=== PATIENT | female | born 1975 | race Caucasian/White ===

== ENCOUNTER → 2016-05-22 | Outpatient (CLI) | payer BC ==
--- NOTE | 2016-05-23 09:23 | XR ---
Lumbosacral spine HISTORY: Chronic low back pain 5 views of lumbosacral spine There is no spondylolysis or spondylolisthesis. Lumbar vertebral bodies show preserved height and bon e mineralization. Disc spaces are maintained. IMPRESSION: No significant abnormalities evident.
== END | disposition home or self-care (01) ==
LOC: RADXRYALE 15:45
PROVIDERS: ATTEND Internal Medicine
DX: M54.9 Dorsalgia, unspecified (principal)
CPT/HCPCS: 72110

== ENCOUNTER → 2017-12-25 | Outpatient (CLI) | payer OTHER ==
--- NOTE | 2017-12-25 13:46 | XR ---
Left ankle HISTORY: Pain and swelling, trauma and pain 3 views of the left ankle There is soft tissue swelling especially lateral malleolus. Bone mineralization, joint spaces and ali gnment are maintained. IMPRESSION: Soft tissue swelling. Follow-up as indicated.
== END | disposition home or self-care (01) ==
LOC: RADXRYALE 11:16
PROVIDERS: ATTEND Internal Medicine
DX: M79.89 Other specified soft tissue disorders (principal)

== ENCOUNTER → 2018-07-02 | Outpatient (CLI) | payer OTHER ==
--- NOTE | 2018-07-02 14:41 | MM ---
Reason for exam: screening (asymptomatic). Baseline mammogram. History: Family history of breast cancer in 2 paternal aunts. Physical Findings: Nurse did not find any significant physical abnormalities on exam. MG 3D Screening Mammo W/Cad Bilateral CC and MLO view(s) were taken. The breast tissue is heterogeneously dense. This may lower the sensitivity of mammography. No significant finding. These results were verbally communicated with the patient and result sheet given to the patient on 07/02/18. ASSESSMENT: Benign, BI-RAD 2 RECOMMENDATION: Routine screening mammogram of both breasts in 1 year.
== END | disposition home or self-care (01) ==
LOC: RADMAMWWP 13:35
PROVIDERS: ATTEND Obstetrics & Gynecology
DX: Z12.31 Encounter for screening mammogram for malignant neoplasm of breast (principal)
CPT/HCPCS: 77063; 77067

== ENCOUNTER → 2018-07-08 | Outpatient (CLI) | payer OTHER | END | disposition home or self-care (01) | LOC: LABWHC1 15:37 | PROVIDERS: ATTEND Obstetrics & Gynecology | DX: N83.291 Other ovarian cyst, right side (principal) | CPT/HCPCS: 36415 ==

== ENCOUNTER → 2018-09-15 | Outpatient (CLI) | payer OTHER ==
[2018-09-15 10:34] LABS: African American GFR (CKD) >90 (>60 ml/min/1.73 sqM); Anion Gap 8 mmol/L; Blood Urea Nitrogen 12 mg/dL (7-17); Carbon Dioxide 27 mmol/L (22-30); Chloride 105 mmol/L (98-107); Glucose 101 mg/dL (74-99); Potassium 4.7 mmol/L (3.5-5.1); Sodium 140 mmol/L (137-145)
[2018-09-15 10:36] LABS: Basophils % (A) 1 %; Eosinophils # (A) 0.1 k/uL (0-0.7); Eosinophils % (A) 2 %; HCT 38.3 % (34.0-46.0); HGB 12.7 gm/dL (11.4-16.0); Lymphocytes # (A) 1.8 k/uL (1.0-4.8); Lymphocytes % (A) 29 %; MCH 29.8 pg (25.0-35.0); MCHC 33.2 g/dL (31.0-37.0); Mean Platelet Volume 7.5; Monocytes # (A) 0.3 k/uL (0-1.0); Monocytes % (A) 5 %; Neutrophils # (A) 3.8 k/uL (1.3-7.7); Neutrophils % (A) 62 %; Platelet Count 320 k/uL (150-450); RBC 4.25 m/uL (3.80-5.40); RDW 13.2 % (11.5-15.5); WBC 6.1 k/uL (3.8-10.6)
== END | disposition home or self-care (01) ==
LOC: LABPAT 09:24
PROVIDERS: ATTEND Obstetrics & Gynecology
DX: Z01.812 Encounter for preprocedural laboratory examination (principal); N83.291 Other ovarian cyst, right side
CPT/HCPCS: 80051; 82565; 82947; 84520; 85025; 87086

== ENCOUNTER 2018-09-23 05:56 | Observation (INO) | payer OTHER ==
[~2018-09-23 05:56] MED LIST: DEXAMETHASONE SOD PHOSPHATE 10 MG/ML 1 ML VIAL IV ONE; LACTATED RINGERS 1,000 ML IV SCH; LIDOCAINE 1% 20 ML VIAL (10MG/ML) FOR IV START INTRADERMA PRN; MIDAZOLAM 2 MG/2 ML VIAL IV PRN; ONDANSETRON 4 MG/2 ML VIAL IVP ONE; SCOPOLAMINE 1.5MG/72HR PATCH TRANSDERM ONE; ceFAZolin IN SWFI 2 GM/20 ML SYRINGE IVP ONE
[2018-09-23] MEDS ORDERED: MIDAZOLAM 2 MG/2 ML VIAL ONE (07:27)
[2018-09-23] MEDS ORDERED: NEOSTIGMINE 1 MG/ML 10 ML VIAL ONE (07:27)
[2018-09-23] MEDS ORDERED: LIDOCAINE 1% INJ 10MG/ML (20 ML MDV) ONE (07:27)
[2018-09-23] MEDS ORDERED: ROCURONIUM BROMIDE 10 MG/ML 10 ML VIAL IV ONE (07:27)
[2018-09-23] MEDS ORDERED: SUCCINYLCHOLINE CHLORIDE 100 MG/5 ML SYR IV ONE (07:27)
[2018-09-23] MEDS ORDERED: fentaNYL (PF) 50 MCG/ML 2 ML AMP ONE (07:27)
[2018-09-23] MEDS ORDERED: PROPOFOL 10 MG/ML 20 ML VIAL IV ONE (07:27)
[2018-09-23] MEDS ORDERED: HYDROmorphone (PF) 1 MG/ML ONE (07:27)
[2018-09-23] MEDS ORDERED: KETOROLAC 30 MG/ML 1 ML VIAL ONE (07:27)
[2018-09-23] MEDS ORDERED: GLYCOPYRROLATE 0.2 MG/ML 2 ML VIAL ONE (07:27)
[2018-09-23] MEDS ORDERED: BUPIVACAINE (PF) 0.5% 30 ML VIAL SQ ONE ×3 (08:14→09:27)
[2018-09-23] MEDS ORDERED: ONDANSETRON 4 MG/2 ML VIAL IVP PRN (09:19)
[2018-09-23] MEDS ORDERED: METOCLOPRAMIDE 5 MG/ML 2 ML VIAL IVP PRN (09:19)
[2018-09-23] MEDS ORDERED: diphenhydrAMINE 50 MG/ML 1 ML VIAL IVP PRN (09:19)
[2018-09-23] MEDS ORDERED: SIMETHICONE 80 MG CHEWABLE PO PRN (09:19)
[2018-09-23] MEDS ORDERED: Acetaminophen-Codeine 300-30mg TAB PO PRN ×2 (09:19)
--- NOTE | 2018-09-23 09:37 | P.OP ---
Date of Procedure: 09/23/18 Preoperative Diagnosis: #1. Menometrorrhagia #2. Fibroid uterus #3. Complex right adnexal mass Postoperative Diagnosis: Same plus #4. abdominal adhesive disease Procedure(s) Performed: #1. Lysis of abdominal adhesions #2. Da Andreea robotically assisted laparoscopic hysterectomy with right salpingo-oophorectomy and partial left salpingectomy #3. Diagnostic cystoscopy Anesthesia: BRITTNEY Surgeon: Juan Byers [employer] Assistant Teacher #1: Vanita Hu Estimated Blood Loss (ml): 50 IV fluids (ml): 700 Urine output (ml): 425 Pathology: other (Uterus, right tube and ovary, part of left tube) Condition: stable Disposition: PACU Operative Findings: Intraoperatively, there was noted to be some adhesions from the omentum to the anterior abdominal wall at the site of apparent periumbilical or ventral abdominal wall hernia repair. These were lysed sharply intraoperatively with laparoscopic rafi. The pelvis was noted to have a moderate amount of inflammation as a general rule with the tubes and ovaries being densely invested the each other. The left ovary did appear to be normal but the tube was too densely adherent terbutaline remove the fimbriated portion. As result only a portion of the left fallopian tube was removed. The right tube and ovary were removed en bloc with the uterine specimen. The remainder of the abdomen appeared entirely normal. Description of Procedure: Patient was prepped and draped in usual fashion after general endotracheal anesthesia was administered by the anesthesiologist. A weighted speculum was placed and the anterior lip the cervix grasped with a single-tooth tenaculum. The cervix was dilated to admit a V care with a large cup was placed and seated over the cervix properly. The weighted speculum was removed and the bladder catheterized with a Al catheter. Attention was turned to the abdomen where a site was selected approximately 3-4 cm above the umbilicus as there was a scar circling the right side of the umbilicus from a possible previous hernia repair. An 8 mm incision was made in the transverse plane allowing insertion of a 5 mm optical trocar under direct visualization without difficulty. A pneumoperitoneum was infused and the patient placed in steep Trendelenburg position. A site was selected approximately 12 cm lateral to the port and 4 cm inferior on the right side where another 8 mm incision was made allowing insertion of an 8 mm da Andreea trocar under direct vision station without difficulty. Some difficulty was noted in visualizing all the mirroring left lower quadrant incision as there was what appeared to be fairly dense omental adhesions just in front of the optical trocar from the previous surgery. The scope was switched to the right lower quadrant port and visualization was obtained for placement. Prior to placement of the conservation assistant trocar, a laparoscopic EndoShears was placed through the optical port and the adhesions were removed at the abdominal wall sharply without difficulty with no ongoing bleeding. The assistance port was then placed approximately 5-6 cm above the optical port and between the left lower quadrant port and optical port from laterality perspective. The optical port was then removed and replaced with a 8mm da Andreea optical port. The robot was then docked to the patient without difficulty. The left arm was loaded with a [place] bipolar cautery forceps while the right arm was loaded with the monopolar cautery scissors. I then presented to the console. The decision was made to leave the left ovary in place as previously planned but the decision was also made to leave the fimbriated portion of the tube as it was densely adherent ovary itself. As result the fallopian tube was divided at the ovary in the incision carried out through the utero-ovarian ligaments using bipolar cautery followed by monopolar cutting. The plane was taken down and through the round ligaments on the left side in a similar fashion. The bladder peritoneum was then elevated and the developed to the midline. Attention was then returned to the right side where the utero-ovarian ligament was identified and cauterized with the [place] followed by incising it with the monopolar cautery scissors. Again the entire tube and ovary were removed along their base down and through the round ligament in similar fashion. The bladder peritoneum was then developed across the midline and joined to the previous incision. The bladder peritoneum was elevated and the collected sharply. A Ray-Andi was passed into the abdomen allowing for further blunt dissection the bladder without difficulty. Once it was determined that the bladder was reflected distally, the bilateral uterine vasculature pedicles were skeletonized and cauterized, then cut. The vaginal cuff was clearly identified anteriorly with the bladder distal. The vagina was sealed and the the anterior cuff of the vagina opened sharply with the monopolar scissors. The cup was then followed around laterally to the left and then posteriorly using sharp cautery. The incision was carried around and up through the right side and joined to the original anterior incision the specimen from the patient. It was ultimately removed into the vagina without difficulty. The Maryland was left in place while the scissors were replaced with a laparoscopic suturing device. A stitch of 0 Stratafix suture was passed and the abdomen and the vaginal cuff closed from angle to angle without difficulty. The stitch was removed without difficulty in the closed vaginal cuff suction irrigated. Was determined there was no ongoing bleeding and no further pathology. The left ovary with a portion of fallopian tube was reexamined and found to be hemostatic and without pathology. I then returned to the patient and remove the Al catheter allowing placement of a diagnostic cystoscope. The dome of the bladder appeared undamaged both from a cystoscopic and laparoscopic perspective. Ureteral hemlocks were easily identified within the bladder and both noted to be peristalsing normally. All instrumentation was then removed and the Al catheter replaced. Once the robot was undocked and ports removed, the incisions were closed with interrupted subcuticular stitches of 4-0 Vicryl followed by half-inch Steri-Strips placed with Mastisol. The incisions were infused with a total of 10 mL of half percent Marcaine without epinephrine equally infused between the 4 incisions. Estimated blood loss for the case was approximately 50 mL. There were no complications. All sponge, instrument, and needle counts were correct area the patient tolerated the procedure well and proceeded to the recovery room in stable condition.
[2018-09-23] MEDS: HYDROmorphone 0.5 MG/0.5 ML SYRINGE IVP PRN ×4 (09:55→10:06)
[2018-09-23] MEDS: MEPERIDINE 50 MG/ML SYRINGE IVP ONE ×2 (10:14→10:19)
[2018-09-23 12:35] VITALS: BMI 37.3
[2018-09-23] MEDS: LACTATED RINGERS 1,000 ML IV SCH ×2 (12:37→15:40)
[2018-09-23] MEDS: KETOROLAC 30 MG/ML 1 ML VIAL IVP PRN ×2 (15:38→21:51)
[2018-09-23] MEDS: SENNOSIDES-DOCUSATE SODIUM 1 EACH TAB PO SCH (20:26)
[2018-09-24] MEDS: LACTATED RINGERS 1,000 ML IV SCH (08:07)
[2018-09-24] MEDS: KETOROLAC 30 MG/ML 1 ML VIAL IVP PRN (08:48)
[2018-09-24] MEDS: SENNOSIDES-DOCUSATE SODIUM 1 EACH TAB PO SCH (08:49)
--- NOTE | 2018-09-24 08:51 | P.DS ---
Providers Date of admission: 09/23/18 21:51 Expected date of discharge: 09/24/18 Attending physician: Juan Byers Primary care physician: Noy Preston - Discharge Diagnosis(es) (1) Complex ovarian cyst Current Visit: Yes Status: Acute (2) Fibroid uterus Current Visit: Yes Status: Acute (3) Menometrorrhagia Current Visit: Yes Status: Acute Hospital Course: The patient is a 43-year-old woman who presented with a long-standing history of irregular and heavy bleeding with known fibroid uterus. She she underwent ultrasound in our office which confirmed the above findings of fibroids but also demonstrated 2 areas which were complex in nature in the right adnexa which were consistent with probable endometriomas. Given her number of symptoms, we opted to proceed with definitive therapy with hysterectomy and the da Andreea approach was the only option aside from open. She was taken the operating room where she underwent da Andreea robotically assisted laparoscopic hysterectomy with right salpingo-oophorectomy and partial left salpingectomy followed by diagnostic cystoscopy. All this was carried out in an uncomplicated fashion. Her postoperative course was uncomplicated as well with vital signs remaining stable and her temperature was afebrile throughout. She was deemed stable for discharge on postoperative day #1 and was discharged home to follow-up in the office in 2 weeks for incision checks and 8 weeks routinely. Discharge instructions included calling for any significantly increased bleeding, fever, pain, incisional concerns, or anything else that concerned her. She is additionally instructed to have nothing in the vagina for at least 8 weeks time to include intercourse. She understood her instructions and agrees to follow up as noted above. Discharge medications included any home medications she may been taking as well as a prescription for Tylenol 3, 1-2 by mouth every 6 hours when necessary pain, #12 dispensed with no refills. She was additionally to use [id number] analgesic pain medications as needed. Discharge hemoglobin and hematocrit pending at the time of this dictation. Patient Condition at Discharge: Stable Plan - Discharge Summary Discharge Rx Participant: Yes New Discharge Prescriptions: No Action [place]-3 Fatty Acids/Fish Oil [Fish Oil 1,000 mg Softgel] 1 each PO DAILY Acetaminophen [Tylenol Extra Strength] 500 mg PO Q6H PRN PRN Reason: Pain Fexofenadine HCl [Bri Allergy] 180 mg PO DAILY PRN PRN Reason: ALLERGY SYMPTOMS Discharge Medication List Acetaminophen [Tylenol Extra Strength] 500 mg PO Q6H PRN 09/18/18 [History] Fexofenadine HCl [Bri Allergy] 180 mg PO DAILY PRN 09/18/18 [History] [place]-3 Fatty Acids/Fish Oil [Fish Oil 1,000 mg Softgel] 1 each PO DAILY 09/18/18 [History] Follow up Appointment(s)/Referral(s): Juan Byers MD [STAFF PHYSICIAN] - 2 Weeks Discharge Disposition: HOME SELF-CARE
[2018-09-24 08:53] LABS: Basophils % (A) 0 %; Eosinophils % (A) 0 %; HGB 10.5 gm/dL (11.4-16.0); Lymphocytes # (A) 2.4 k/uL (1.0-4.8); Lymphocytes % (A) 26 %; MCH 30.4 pg (25.0-35.0); MCHC 33.8 g/dL (31.0-37.0); Mean Platelet Volume 7.7; Monocytes # (A) 0.5 k/uL (0-1.0); Monocytes % (A) 5 %; Neutrophils # (A) 6.1 k/uL (1.3-7.7); Neutrophils % (A) 67 %; Platelet Count 304 k/uL (150-450); RBC 3.44 m/uL (3.80-5.40); RDW 13.1 % (11.5-15.5); WBC 9.1 k/uL (3.8-10.6)
[2018-09-24 09:33] VITALS: RESP 16
[2018-09-24 12:41] VITALS: BP 121/82; PULSE 84; TEMP 98.5
== END 2018-09-24 13:55 | disposition home or self-care (01) ==
LOC: OR 05:56 → 6PED 09:27 → OR 21:51 → 6PED 21:51
PROVIDERS: ADMIT Obstetrics & Gynecology; ATTEND Obstetrics & Gynecology
DX: D25.9 Leiomyoma of uterus, unspecified (principal); N80.0 Endometriosis of uterus; N83.8 Other noninflammatory disorders of ovary, fallopian tube and broad ligament; N72 Inflammatory disease of cervix uteri; K66.0 Peritoneal adhesions (postprocedural) (postinfection); N83.291 Other ovarian cyst, right side; N92.1 Excessive and frequent menstruation with irregular cycle; D64.9 Anemia, unspecified; E78.5 Hyperlipidemia, unspecified; Z79.1 Long term (current) use of non-steroidal anti-inflammatories (NSAID); Z79.899 Other long term (current) drug therapy; Z88.6 Allergy status to analgesic agent; Z88.8 Allergy status to other drugs, medicaments and biological substances; Z87.891 Personal history of nicotine dependence; Z90.49 Acquired absence of other specified parts of digestive tract; Z82.49 Family history of ischemic heart disease and other diseases of the circulatory system
CPT/HCPCS: 58552; S2900; 81025; 85025; 86850; 86900; 86901; 88307